=== PATIENT | male | born 1945 | race Caucasian/White ===

== ENCOUNTER 2018-05-25 08:07 | Day surgery (SDC) | payer MEDICARE, OTHER, SELFPAY ==
--- NOTE | 2018-05-25 08:26 | PM.PREOP ---
Pre-operative Note Interval Note Pre-op Check: Yes History & Physical Reviewed by Physician Changes: No
[2018-05-25] MEDS: PROPARACAINE 0.5% OPHTH SOL 2 DROPS EYE-OP ×2 (09:13→10:05)
[2018-05-25 09:14] VITALS: BP 129/74; PULSE 60; RESP 20; TEMP 36.2; O2SAT 98
[2018-05-25] MEDS: CATARACT EYE COMPOUND (10 DROPS/SYRINGE) 3 DROPS EYE-OP (09:17)
[2018-05-25 09:20] VITALS: BMI 23.0
[2018-05-25] MEDS: LIDOCAINE 1% W/EPI INJ 20 ML INJ (10:13)
[2018-05-25] MEDS: LIDOCAINE 2% 4 ML, BUPIVACAINE 0.5% (PF) 4 ML, HYALURONIDASE 150 UNIT INJ (10:14)
[2018-05-25] MEDS: CHONDROIDTIN/SOD HYALURONATE 1.05 ML SYRINGE INTRAOCULA (10:32)
[2018-05-25] MEDS: BALANCED SALT IRRIG SOLN NO.2 15 ML IRRIG.SOLN IRR (10:32)
[2018-05-25] MEDS: HYALURONATE SODIUM 10 MG/ML SYRINGE INJ (10:33)
[2018-05-25] MEDS: MOXIFLOXACIN OPHTH DROPS 3 ML BOTTLE 2 DROPS INJ (10:34)
[2018-05-25] MEDS: OFLOXACIN 0.3% OPHTH 5 ML 2 DROPS EYE-RIGHT (10:34)
[2018-05-25] MEDS: NEOMYCIN/POLY/DEX OPHTH OINT 1 APPLIC EYE-RIGHT (10:34)
[2018-05-25] MEDS: PHENYLEPHRINE/LIDOCAINE VIAL (OR) 0.2 ML EYE-OP (10:35)
[2018-05-25] MEDS: TRIAMCINOLONE 50 MG/5 ML VIAL INJ (10:35)
[2018-05-25] MEDS: BALANCED SALT IRRIG SOLN NO.2 500 ML, EPINEPHrine 1 MG IRR (10:36)
[2018-05-25 11:06] VITALS: BP 125/80; PULSE 59; RESP 16; TEMP 36.6; O2SAT 97
--- NOTE | 2018-05-25 17:30 | P.OP_ITS ---
Operative Date/Time/Diagnoses Date of procedure: 05/25/18 Time of procedure: 10:00 Procedure & Clinicians Procedure: Date of service:05/25/2018 Preoperative diagnoses: 1. Right nuclear sclerotic cataract. 2. Astigmatism which he likes to correct with a toric intraocular lens implant. Postoperative diagnoses: 1. Cataract Removed with phacoemulsification and placement of a toric intra- ocular lens posterior chamber implant. Procedure: Phacoemulsification with posterior chamber intraocular lens implant Surgeon: Jayda Blair MD Complications:none Specimen: None Implant:[id number] [place] 010. Blood loss: None Anesthesia: Retrobulbar with monitored standby Anesthesiologist: Moiz Collazo M.D. Description of procedure: Patient is a 72 year old with decreased vision due to cataract which is affecting activities of daily living. He wants surgery to improve vision. He has taken to the operating room and given Topical proparacaine drops and indelible ink encarnacion were placed at the 90 and 180 degree meridian. He has been placed on the operating table and givenIV sedation. A retrobulbar block insert consisting of 6 cc of 2% xylocaine without epinephrine mixed half and half with 0.5% Marcaine with 1 cc of hyaluronidase added is placed between the medial and lateral 1/3 of the inferior orbital rim. Lid akinesia is obtain with 1% xylocaine with epinephrine infiltrated along the lid margin. The eye is manually massaged for 30 sec, prepped using Betadine solution, and draped in the usual sterile fashion. Temporal approach was made, a 1 mm side-port incision was made at the 7:30 position. Phenylephrine 1.5% mixed with 1% xylocaine 0.2 cc was placed into the anterior chamber. Viscoat followed by Melchor was then placed. A 2.6 mm clear incision with a 2.6 mm blade was placed at the 170 degree meridian. A 360 degree capsulorrhexis style capsulotomy was then performed with a cystitome needle on a Healon. Hydrodelineation and hydrodissection were performed. The phacoemulsification unit is introduced, and sculpting notice used to groove the central lens. It is then removed in chopping mode. Epi nucleus is removed with epinuclear mode and irrigation aspiration was used to remove the peripheral cortex. The posterior capsule is polished. The intraocular lens is selected, inspected, power confirmed, and placed in the posterior chamber at the 10 degree meridian. The pupil was constricted. The wound was stromally hydrated and tested for leaks, there was none and was left sutureless. Vigamox 0.1 cc was placed into the anterior chamber. Kenalog 0.2 cc was placed in the superior subconjunctival space. A drop of antibiotic and was placed and the eye was patched and shielded. The patient was stable and returned to the recovery room in excellent condition. Dictated by: Jayda Blair MD Copy to: [facility] Same procedure as scheduled: Yes
== END 2018-05-25 11:16 | disposition home or self-care (01) ==
PROVIDERS: PCP Internal Medicine; Visit Provider Ophthalmology
DX: H25.11 Age-related nuclear cataract, right eye (principal); H52.201 Unspecified astigmatism, right eye
CPT/HCPCS: J0171; J2704; J3301; J3470; V2787

== ENCOUNTER → 2018-06-02 08:54 | Outpatient (CLI) | payer MEDICARE, OTHER, SELFPAY ==
--- NOTE | 2018-06-02 | DI.CT.S_ITS ---
PROCEDURE: CT CHEST WO CON INDICATIONS: NONSPECIFIED ABNORMAL FINDING OF LUNG FIELD TECHNIQUE: Noncontrast 5 mm thick sections acquired from the pulmonary apices to the posterior costophrenic angles. 7 mm thick coronal and sagittal MIP reformats were then acquired. For radiation dose reduction, the following was used: automated exposure control, adjustment of mA and/or kV according to patient size. COMPARISON: [facility], CT, THORAX WITH CONTRAST, 10/19/2016, 16:01. [facility], CT, THORAX WITHOUT CONTRAST, 11/17/2016, 12:16. [place], [place], PET/CT WHOLE BODY EXTENDED, 11/27/2016, 9:52. FINDINGS: Image quality: Excellent. Lungs and pleura: There is no 7 mm ground glass density in the right upper lobe (series 3 image 55). Multiple small nodules are present bilaterally, unchanged. Several groundglass nodular densities seen on last exam are no longer visualized. There is a cluster of nodular densities in the right middle lobe just under the minor fissure, unchanged in size and configuration compared with the last CT of 11/11/2016. No pleural effusions or pneumothorax. Central and peripheral airways are patent and normal in caliber. Mediastinum: Heart size is normal. No pericardial effusion. Small mediastinal lymph nodes are likely reactive. No mediastinal adenopathy by size criteria. Thoracic aorta and central pulmonary arteries are normal in size. Esophagus is normal in caliber. No hiatal hernia. Bones and chest wall: No suspicious bony lesions. No vertebral body compression fractures. No axillary or supraclavicular adenopathy by size criteria. Thyroid gland is normal. Abdomen: Visualized upper abdominal solid organs and bowel loops appear normal in the absence of contrast. IMPRESSION: 1. Mixed interval changes. Some nodules are stable; others are resolved. There is a new nodule in the right upper lobe. The constellation of findings suggests inflammatory or infectious etiology. Recommend followup imaging based on Fleischner Society criteria. Fleischner Society criteria for SUB-SOLID lung nodule followup. Solitary pure ground-glass nodules5 mm or lessNo followup needed. >5 mm3 mo follow-up CT to confirm persistence. Then annual CT for 3 years. Part-solid nodules3 mo follow-up CT to confirm persistence. If persistent with solid component <5 mm, annual CT for at least 3 years. If solid component is 5 mm or more, biopsy or surgical resection. Consider PET-CT for lesions > 10 mm. Multiple sub-solid nodulesPure ground glass nodules [address] at 2 and 4 years. Pure ground glass nodules >5 mm without dominant lesion. [address] to confirm persistence, then annual followup CT for at least 3 years. Dominant nodule(s) with part-solid or solid component. [address] to confirm persistence. If persistent, consider biopsy or surgical resection, janes if lesions have >5 mm solid component. Dictated by: Mallorie Moore M.D. on 06/02/2018 at 9:41 Transcribed by: CHIOMA on 06/02/2018 at 9:51 Approved by: Mallorie Moore M.D. on 06/02/2018 at 12:07
== END ==
PROVIDERS: PCP Internal Medicine; Visit Provider Internal Medicine
DX: R91.8 Other nonspecific abnormal finding of lung field (principal)
CPT/HCPCS: 71250

== ENCOUNTER 2018-06-08 07:43 | Day surgery (SDC) | payer MEDICARE, OTHER, SELFPAY ==
--- NOTE | 2018-06-08 07:50 | PM.PREOP ---
Pre-operative Note Interval Note Pre-op Check: Yes History & Physical Reviewed by Physician Changes: No
[2018-06-08] MEDS: PROPARACAINE 0.5% OPHTH SOL 2 DROPS EYE-OP (07:57)
--- NOTE | 2018-06-08 07:57 | P.OP_ITS ---
Operative Date/Time/Diagnoses Date of procedure: 06/08/18 Time of procedure: 09:00 Procedure & Clinicians Procedure: Date of service: June 08, 2018 Preoperative diagnoses: 1. Nuclear sclerotic cortical Cataract 2. Astigmatism which he likes to correct with a toric intraocular lens. 3. 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 Postoperative diagnoses: 1. Cataract removal with phacoemulsification and placement of a toric intraocular lens Procedure: Phacoemulsification with posterior chamber intraocular lens implant Surgeon: Jayda Blair MD Complications: None Specimen: None Implant: [id number] [place] 166 Blood loss: None Anesthesia: Retrobulbar with monitored standby Anesthesiologist: Mark Fernandez M.D. Description of procedure: Patient is a 72 year old male with decreased vision due to cataract which is affecting activities of daily living. He wants surgery to improve vision and also elects to correct his astigmatism. He has taken to the operating room and given topical proparacaine drops. Indelible ink encarnacion are made at the 90 and 180 degree meridian. He was placed on the operating room table and given IV sedation. A retrobulbar block insert consisting of 6 cc of 2% xylocaine without epinephrine mixed half and half with 0.5% Marcaine with 1 cc of hyaluronidase added is placed between the medial and lateral 1/3 of the inferior orbital rim. Lid akinesia is obtain with 1% xylocaine with epinephrine infiltrated along the lid margin. The eye is manually massaged for 30 sec, prepped using Betadine solution, and draped in the usual sterile fashion. Temporal approach was made, a 1 mm side-port incision was made at the 12 oclock meridian. Phenylephrine 1.5% mixed with 1% xylocaine 0.2 cc was placed into the anterior chamber. Viscoat followed by Melchor was then placed. A 2.6 mm clear incision with a 2.6 mm blade was placed at the 3 oclock meridian. A 360 degree capsulorrhexis style capsulotomy was then performed with a cystitome needle on a Healon. Hydrodelineation and hydrodissection were performed. The phacoemulsification unit is introduced, and sculpting notice used to groove the central lens. It is then removed in chopping mode. Epi nucleus is removed with epinuclear mode and irrigation aspiration was used to remove the peripheral cortex. The posterior capsule is polished. The intraocular lens is selected, inspected, power confirmed, and placed in the posterior chamber at the 166 degree meridian. The pupil was not constricted. The wound was stromally hydrated and tested for leaks, there was none and was left sutureless. Vigamox 0.1 cc was placed into the anterior chamber. Kenalog 0.2 cc was placed in the superior subconjunctival space. A drop of antibiotic and was placed and the eye was patched and shielded. The patient was stable and returned to the recovery room in excellent condition. Dictated by: Jayda Blair MD Copy to: [facility] Same procedure as scheduled: Yes
[2018-06-08] MEDS: CATARACT EYE COMPOUND (10 DROPS/SYRINGE) 3 DROPS EYE-OP (08:06)
[2018-06-08 08:11] VITALS: BP 131/81; PULSE 63; RESP 16; TEMP 36.3; O2SAT 98; BMI 21.6
[2018-06-08] MEDS: LIDOCAINE 1% W/EPI INJ 20 ML INJ (09:26)
[2018-06-08] MEDS: BALANCED SALT IRRIG SOLN NO.2 15 ML IRRIG.SOLN IRR (09:26)
[2018-06-08] MEDS: CHONDROIDTIN/SOD HYALURONATE 1.05 ML SYRINGE INTRAOCULA (09:26)
[2018-06-08] MEDS: HYALURONATE SODIUM 10 MG/ML SYRINGE INJ (09:26)
[2018-06-08] MEDS: NEOMYCIN/POLY/DEX OPHTH OINT 1 APPLIC EYE-LEFT (09:27)
[2018-06-08] MEDS: PHENYLEPHRINE/LIDOCAINE VIAL (OR) 0.2 ML EYE-OP (09:27)
[2018-06-08] MEDS: MOXIFLOXACIN OPHTH DROPS 3 ML BOTTLE 2 DROPS INJ (09:27)
[2018-06-08] MEDS: OFLOXACIN 0.3% OPHTH 5 ML 2 DROPS EYE-LEFT (09:27)
[2018-06-08] MEDS: TRIAMCINOLONE 50 MG/5 ML VIAL INJ (09:28)
[2018-06-08] MEDS: BALANCED SALT IRRIG SOLN NO.2 500 ML, EPINEPHrine 1 MG IRR (09:28)
[2018-06-08] MEDS: LIDOCAINE 2% 4 ML, BUPIVACAINE 0.5% (PF) 4 ML, HYALURONIDASE 150 UNIT INJ (09:29)
[2018-06-08 09:48] VITALS: BP 122/77; PULSE 68; RESP 15; TEMP 36.3; O2SAT 97
== END 2018-06-08 09:55 | disposition home or self-care (01) ==
PROVIDERS: PCP Internal Medicine; Visit Provider Ophthalmology
DX: H25.12 Age-related nuclear cataract, left eye (principal); H52.202 Unspecified astigmatism, left eye; H17.89 Other corneal scars and opacities
CPT/HCPCS: J0171; J2704; J3301; J3470; V2787

== ENCOUNTER → 2020-06-20 15:40 | Outpatient (ROUT) | payer MEDICARE, OTHER, SELFPAY ==
[2020-06-20 16:01] LABS: C-Reactive Protein Quant 0.5 mg/dL (<1.0)
[2020-06-20 16:03] LABS: Add Manual Diff / Slide Review NO; Basophils Absolute Auto 0 /uL (0-100); Basophils Percent Auto 0.4 % (0-2); Eosinophils Absolute Auto 0 /uL (0-450); Eosinophils Percent Auto 0.2 % (2-4); Hematocrit 39.9 % (41-53); Hemoglobin 13.1 g/dL (13.5-17.5); Lymphocytes Absolute Auto 900 /uL (1100-4500); Lymphocytes Percent Auto 7.6 % (25-40); Mean Corpuscular HGB Conc 32.9 % (30-36); Mean Corpuscular Hemoglobin 30.8 PG (26-34); Mean Corpuscular Volume 93.7 fL (80-100); Monocytes Absolute Auto 400 /uL (0-900); Monocytes Percent Auto 3.6 % (3-14); Neutrophils Absolute Auto 10800 /uL (1500-7000); Neutrophils Percent Auto 88.2 % (50-75); Platelet Count 272 X10^3/uL (150-400); Red Blood Cell Count 4.25 X10^6/uL (4.5-5.9); Red Cell Distribution Width 13.8 % (11.6-14.8); White Blood Cell Count 12.2 X10^3/uL (4.5-11.0)
[2020-06-20 16:26] LABS: Prostate Specific Antigen 0.998 ng/mL (0.10-4.00)
[2020-06-20 16:54] LABS: Erythrocyte Sedimentation Rate 7 MM/HR (0-15)
== END ==
PROVIDERS: PCP Internal Medicine; Visit Provider Internal Medicine
DX: M35.3 Polymyalgia rheumatica (principal); N41.1 Chronic prostatitis
CPT/HCPCS: 84153; 85025; 85651; 86140